=== PATIENT | female | born 1990 | race Caucasian/White ===

== ENCOUNTER 2017-02-01 12:09 | Emergency (ER) | payer OTHER ==
[~2017-02-01] VITALS: Ht 162.6 cm; Wt 72.6 kg
--- NOTE | ~2017-02-01 | EKG ---
[address] [address] ELECTROCARDIOGRAM REPORT Name: LACIELUCINDA Room #: [facility]P [facility] [id number] Admission: 02/01/17 Attend Phys: Discharge: 02/01/17 Date of : 89 Report #: [id number] THIS REPORT FOR: //name// [facility] ED Test Date: 2017-02-01 Test Time: 13:21:38 Pat Name: LUCINDA MEDELLIN Department: Room: Gender: F [employer] Work[employer]ive[employer]: [id number] : 1990 Requested By: Antonio Sood Order Number: [id number] MD: Juventino Sandhu Measurements Intervals [place] Rate: 70 P: 56 OR: 151 QRS: 66 QRSD: 92 T: 45 QT: 400 QTc: 432 Interpretive Statements Sinus rhythm Normal tracing Compared to ECG 05/02/2016 09:58:11 No significant changes Electronically Signed On 02-02-2017 9:22:25 CDT by Juventino Sandhu [email or web address] <ELECTRONICALLY SIGNED> By: Juventino Sandhu MD, [facility] 02/02/17 0922 1321 1321 Juventino Sandhu MD, FACC /EPI
[~2017-02-01 12:09] MED LIST: ADDERALL 20 MG20 M1 PO; ATIVAN0.5 M1 PO; ONDANSETRON HCL4 M2 PO; PROZAC10 MG PO
[2017-02-01] MEDS ORDERED: CLARITIN10 MG PO (12:49)
[2017-02-01] MEDS ORDERED: VITAMIN D1000 UNI1 PO (12:49)
[2017-02-01 12:51] LABS: ABSOLUTE NEUTROPHILS 3.7 thou/uL (1.4-8.2); BASOPHILS 0.6 % (0.0-2.0); EOSINOPHILS 1.3 % (0.0-3.0); HEMATOCRIT 43.3 % (37.0-47.0); HEMOGLOBIN 15.3 gm/dL (12.0-15.0); MANUAL DIFF NO; MCH 32.7 pg (26.0-34.0); MCHC 35.4 g/dL (28.0-37.0); MCV 92.6 fL (80.0-100.0); MONOCYTES 9.7 % (1.0-8.0); PLATELET COUNT 229 thou/uL (150-400); POLYS 61.4 % (36.0-66.0); RBC 4.67 mil/uL (4.20-5.00); RDW 12.3 % (10.5-14.5)
[2017-02-01 12:53] LABS: ANION GAP 9 mmol/L (7-16); BUN 11 mg/dL (7-18); CALCIUM 9.9 mg/dL (8.5-10.1); CHLORIDE 103 mmol/L (98-107); CO2 29 mmol/L (21-32); CREATININE 0.8 mg/dL (0.6-1.0); GLUCOSE 48 mg/dL (74-106); POTASSIUM 3.4 mmol/L (3.5-5.1); SODIUM 141 mmol/L (136-145)
[2017-02-01 13:02] LABS: TROPONIN-I < 0.04 ng/mL (<0.04-0.07)
[2017-02-01 15:23] VITALS: BP 105/66
== END 2017-02-01 15:26 | disposition home or self-care (01) ==
LOC: ER 12:09
PROVIDERS: Emergency Medicine
DX: I95.1 Orthostatic hypotension (principal); E16.2 Hypoglycemia, unspecified; F41.9 Anxiety disorder, unspecified